=== PATIENT | female | born 1990 | race Caucasian/White ===

== ENCOUNTER 2022-08-05 12:21 | Outpatient (CLI) | payer MEDICAID, SELFPAY ==
[2022-08-05 12:29] LABS: Ur HCG Qualitative* Negative (Negative)
[2022-08-05 15:11] LABS: HIV 1/2/P24 Combo Screen* Negative (Negative)
[2022-08-05 15:46] LABS: Chlamydia DNA Amplified* NOT DETECTED (No Detected); GC DNA Amplified* NOT DETECTED (No Detected)
[2022-08-05 16:52] LABS: Clue Cells No Clue Cells Seen (None Seen); Trichomonas No Trichomonas Seen (None Seen); Yeast No Yeast Seen (None Seen)
[2022-08-07 02:44] LABS: Rapid Plasma Reagin (RPR) Non Reactive (Non Reactive)
== END 2022-08-05 12:22 | disposition home or self-care (01) ==
PROVIDERS: PCP Family Medicine; Visit Provider Family Medicine
DX: Z79.899 Other long term (current) drug therapy (principal); L70.0 Acne vulgaris; G47.00 Insomnia, unspecified; F41.8 Other specified anxiety disorders; Z12.4 Encounter for screening for malignant neoplasm of cervix; Z11.3 Encounter for screening for infections with a predominantly sexual mode of transmission
CPT/HCPCS: 81025; 86592; 86703; 87210; 87491; 87591; 87624; 88175

== ENCOUNTER 2022-10-13 10:09 | Outpatient (CLI) | payer MEDICAID, SELFPAY | END 2022-10-13 10:10 | disposition home or self-care (01) | LOC: FBOREF 10-16 13:02 | PROVIDERS: PCP Family Medicine; Visit Provider Family Medicine | DX: R39.15 Urgency of urination (principal) | CPT/HCPCS: 87086 ==

== ENCOUNTER 2023-01-12 13:18 | Outpatient (CLI) | payer MEDICAID, SELFPAY ==
[2023-01-12 23:03] LABS: Chloride* 104 mmol/L (96-114); Sodium* 135 mmol/L (135-149)
[2023-01-12 23:04] LABS: Potassium* 4.1 mmol/L (3.6-5.1)
[2023-01-12 23:06] LABS: Creatinine* 0.7 mg/dL (0.5-1.5); Estimated Glomerular Filt Rate 119 ml/min
[2023-01-12 23:07] LABS: Blood Urea Nitrogen* 19 mg/dL (5-24); Calcium* 8.6 mg/dL (8.4-10.6); Carbon Dioxide* 25 mmol/L (20-32); Glucose* 101 mg/dL (60-115)
== END 2023-01-12 13:19 | disposition home or self-care (01) ==
PROVIDERS: PCP Family Medicine; Visit Provider Family Medicine
DX: L65.9 Nonscarring hair loss, unspecified (principal)
CPT/HCPCS: 80048; 84443

== ENCOUNTER 2023-03-19 09:26 | Outpatient (CLI) | payer MEDICAID, SELFPAY | END 2023-03-19 09:27 | disposition home or self-care (01) | LOC: FBOREF 09:27 | PROVIDERS: PCP Family Medicine; Visit Provider Family Medicine | DX: E03.9 Hypothyroidism, unspecified (principal) | CPT/HCPCS: 84443 ==

== ENCOUNTER 2023-05-18 12:05 | Outpatient (CLI) | payer MEDICAID, SELFPAY | END 2023-05-18 12:06 | disposition home or self-care (01) | LOC: FBOREF 12:05 | PROVIDERS: PCP Family Medicine; Visit Provider Family Medicine | DX: E03.9 Hypothyroidism, unspecified (principal) | CPT/HCPCS: 84443 ==

== ENCOUNTER 2023-08-27 11:01 | Outpatient (CLI) | payer MEDICAID, SELFPAY | END 2023-08-27 11:02 | disposition home or self-care (01) | PROVIDERS: PCP Family Medicine; Visit Provider Family Medicine | DX: E03.9 Hypothyroidism, unspecified (principal); L70.0 Acne vulgaris; Z79.899 Other long term (current) drug therapy | CPT/HCPCS: 82465; 84443; 84460; 85025 ==

== ENCOUNTER 2023-10-26 11:47 | Outpatient (CLI) | payer MEDICAID, SELFPAY | END 2023-10-26 11:48 | disposition home or self-care (01) | PROVIDERS: PCP Family Medicine; Visit Provider Family Medicine | DX: E03.9 Hypothyroidism, unspecified (principal); Z79.899 Other long term (current) drug therapy; Z13.9 Encounter for screening, unspecified | CPT/HCPCS: 82465; 84460; 85025 ==

== ENCOUNTER 2024-11-01 15:06 | Outpatient (CLI) | payer MEDICAID, SELFPAY | END 2024-11-01 15:07 | disposition home or self-care (01) | PROVIDERS: PCP Family Medicine; Visit Provider Family Medicine | DX: R53.83 Other fatigue (principal); E03.9 Hypothyroidism, unspecified; F41.1 Generalized anxiety disorder | CPT/HCPCS: 80048; 84443; 85025 ==

== ENCOUNTER 2025-05-10 11:57 | Outpatient (CLI) | payer MEDICAID, SELFPAY | END 2025-05-10 11:58 | disposition home or self-care (01) | LOC: FBOREF 11:57 | PROVIDERS: PCP Family Medicine; Visit Provider Family Medicine | DX: E03.9 Hypothyroidism, unspecified (principal) | CPT/HCPCS: 84439; 84443 ==